=== PATIENT | male | born 1990 | race Caucasian/White ===

== ENCOUNTER 2018-05-30 22:23 | Emergency (ER) | payer MEDICAID ==
[~2018-05-30] VITALS: Ht 175.3 cm; Wt 150.0 kg
[2018-05-31 01:55] VITALS: BP 131/74
== END 2018-05-31 02:03 | disposition home or self-care (01) ==
LOC: ER 22:23
DX: R06.00 Dyspnea, unspecified (principal); R03.0 Elevated blood-pressure reading, without diagnosis of hypertension
CPT/HCPCS: 71045; 93005; 99284